=== PATIENT | female | born 1970 ===

== ENCOUNTER 2023-04-19 09:00 | Outpatient (CLI) | payer OTHER ==
[~2023-04-19 09:00] MED LIST: AVAPRO150 MG; METOPROLOL SUCC25 MG; NORVASC5 MG; PRINIVIL5 MG PO; ULTRACET PO
== END 2023-04-19 09:06 | disposition home or self-care (01) ==
LOC: SONOGRAMA 09:00
PROVIDERS: ATTEND Obstetrics & Gynecology
DX: N84.0 Polyp of corpus uteri (principal); N95.0 Postmenopausal bleeding

== ENCOUNTER 2023-09-20 13:56 | Outpatient (CLI) | payer OTHER | END 2023-09-20 14:00 | disposition home or self-care (01) | LOC: RAD 13:56 | PROVIDERS: ATTEND General Practice | DX: M19.071 Primary osteoarthritis, right ankle and foot (principal) ==